=== PATIENT | female | born 1990 | race Caucasian/White ===

== ENCOUNTER → 2021-05-13 | Emergency (ER) | payer OTHER ==
[~2021-05-13] VITALS: Ht 162.6 cm; Wt 59.0 kg
[~2021-05-13] MED LIST: ADDERALL 10 MG10 MG; WELLBUTRIN XL300 MG
== END | disposition left against medical advice (07) ==
LOC: ER 00:45
DX: R00.0 Tachycardia, unspecified (principal); R07.89 Other chest pain

== ENCOUNTER 2022-01-20 17:46 | Emergency (ER) | payer OTHER ==
[~2022-01-20] VITALS: Ht 165.1 cm; Wt 54.4 kg
[2022-01-20] MEDS ORDERED: ATIVAN0.5 M1 PO (17:55)
== END 2022-01-20 19:52 | disposition home or self-care (01) ==
LOC: ER 17:46
DX: U07.1 COVID-19 (principal); R50.9 Fever, unspecified; R53.81 Other malaise; R19.7 Diarrhea, unspecified; R51.9 Headache, unspecified; R05.9 Cough, unspecified